=== PATIENT | female | born 1995 | race Caucasian/White ===

== ENCOUNTER 2017-03-30 17:07 | Emergency (ER) | payer OTHER ==
[2017-03-30 21:21] VITALS: BP 118/73
== END 2017-03-30 21:21 | disposition home or self-care (01) ==
LOC: ED 17:07
DX: M25.562 Pain in left knee (principal)
CPT/HCPCS: J1885; Q0092

== ENCOUNTER 2017-12-01 03:11 | Emergency (ER) | payer SELFPAY ==
[~2017-12-01] VITALS: Ht 162.6 cm; Wt 71.2 kg
[2017-12-01 03:15] VITALS: Ht 162.6 cm; Wt 71.2 kg
[2017-12-01 05:48] VITALS: BP 122/91
== END 2017-12-01 05:48 | disposition home or self-care (01) ==
LOC: ED 03:11
DX: M25.562 Pain in left knee (principal); M25.561 Pain in right knee; M25.532 Pain in left wrist; M25.531 Pain in right wrist; M79.672 Pain in left foot; M79.671 Pain in right foot; M25.572 Pain in left ankle and joints of left foot; M25.571 Pain in right ankle and joints of right foot
CPT/HCPCS: J1885